=== PATIENT | female | born 1990 | race Caucasian/White ===

== ENCOUNTER 2020-01-15 15:17 | Outpatient (REF) | payer SELFPAY ==
[2020-01-20 00:48] LABS: SARS-CoV-2 RNA Undetected (Undetected); SARS-CoV-2 Specimen Source Nasal
== END 2020-01-15 15:37 ==
LOC: NCHCN 15:17
PROVIDERS: Visit Provider Family Medicine
DX: J34.89 Other specified disorders of nose and nasal sinuses (principal); Z11.59 Encounter for screening for other viral diseases
CPT/HCPCS: U0003

== ENCOUNTER 2024-03-08 14:17 | Emergency (ER) | payer MEDICAID, SELFPAY ==
[2024-03-08 14:20] VITALS: BP 112/79; PULSE 102; RESP 14; TEMP 37
[2024-03-08 14:26] VITALS: BP 112/79; PULSE 102; RESP 14; TEMP 37
[2024-03-08] MEDS: Tetracaine 0.5% 4 ML BTL (14:48)
[2024-03-08] MEDS: Fluorescein STRIPS 100/BOX 1 MG (14:48)
[2024-03-08] MEDS: Erythromycin Ophth Oint 3.5 GM TUBE (14:48)
--- NOTE | 2024-03-08 14:48 | W.ED.GENAD ---
Discharge Plan Disposition Patient Disposition: Home Condition: Good Discharge Details Clinical Impression: Injury of conjunctiva and corneal abrasion of right eye w/o FB Primary Care Provider: Unknown,Unknown ED Provider: Aquilino Collins Home Meds and New Rx's Prescriptions: No Action No Known Home Meds Discharge Instructions Instructions: Corneal Abrasion ED Additional Instructions: At this time you have evidence of a notable corneal abrasion in the front of your eye. There was a very small foreign body that was removed. Please continue to apply the erythromycin ointment every 6 hours. Please follow-up closely with your regulatory compliance director Dr. Chua. Once you have completed the erythromycin ointment application over the next 2 days, please transition to a lubricating eyedrop and apply this nightly immediately before you go to bed. If you notice any worsening of your symptoms, or any new symptoms such as vomiting, diarrhea, fever, chills, shortness of breath, chest pain, numbness, weakness, or fainting , please return immediately to the emergency department for reevaluation. Please follow up with your primary care provider as soon as possible for reassessment and reevaluation. As always, it was a pleasure participating in your medical care today. Referrals: [facility] [place] [Outside] [facility] General Date/Time Provider Initiated Documentation: 03/08/24 14:26. HPI Narrative: 34-year-old female with no significant past medical history who does not wear contact lenses presents today for irritation in the right eye. Patient states that yesterday she was [place] in the forest when a pine tree branch struck her in the right eye. She immediately had pain. It continued throughout the night into today. When she woke up this morning she had discharge and crusting. And the pain seem to be worse. She denies any significant visual change otherwise. She feels like there is a foreign body stuck in her eye. She denies any other complaints at this time. No other modifying factors. Related Data Home Medications ?Medication ?Instructions ?Recorded ?Confirmed Unknown [No Known Home Meds] 03/08/24 03/08/24 Allergies Allergy/AdvReac Type Severity Reaction Status Date / Time soap Allergy Intermediate Other (See Verified 03/08/24 14:25 Comment) Sulfa (Sulfonamide Allergy Intermediate Other (See Verified 03/08/24 14:25 Antibiotics) Comment) General Stated Complaint: EyeProblem AYUSH: 4 Exam Narrative Exam Narrative: 1.Const: Well-nourished, Well-developed, appearing stated age 2.Eyes: PERRL, right eye demonstrates minimal conjunctival injection, right eye: EOMI, PERRL, Peripheral vision intact. No nystagmus. No clinical signs of septal/orbital cellulitis, no redness around the eye, no proptosis. No hyphema, no signs of trauma around the eye, no periorbital emphysema. No sluggishness of the pupil. No ophthalmoplegia. No afferent pupillary defect. Fluorescein exam is positive for corneal abrasion right over the pupil, negative Sukhdeep sign. Visual acuity as documented in chart. Eversion of the upper and lower lid demonstrates no large foreign body, however there is evidence of a very small speck of detritus or wood that was noted in the medial aspect by the medial canthus. This was removed without complication. 3.ENT: Atraumatic external nose and ears. Moist MM. Neck: Symmetric, trachea midline, No thyromegaly. 4.CVS: +S1/S2, Peripheral pulses 2+ and equal in all extremities. Brisk capillary refill in all extremities. 5.RESP: Unlabored respiratory effort. Clear to auscultation bilaterally. No wheezes rales or rhonchi 6.GI: Soft, Nontender/Nondistended, No hepatosplenomegaly. No guarding or rebound. 7.MSK: Normocephalic/Atraumatic, Extremities w/o deformity or ttp No cyanosis or clubbing, Normal movement of all extremities 8.Skin: Warm, Dry. No rashes or lesions. 9.Neuro: [employer] II-XII grossly intact. Sensation grossly intact, no focal neurologic deficits. 10.Psych: (AAO) x3. Appropriate mood and affect Course Vital Signs Vital signs: Vital Signs Temperature 37.0 C 03/08/24 14:20 Pulse 102 H 03/08/24 14:20 Respiratory Rate 14 03/08/24 14:20 Blood Pressure 112/79 03/08/24 14:20 Temperature 37.0 C 03/08/24 14:26 Temperature Source Skin 03/08/24 14:26 Pulse 102 H 03/08/24 14:26 Respiratory Rate 14 03/08/24 14: Blood Pressure 112/79 03/08/24 14:26 Blood Pressure Position Sitting 03/08/24 14:26 Oxygen Delivery Method Room Air 03/08/24 14:26 Oxygen Flow Rate 0 03/08/24 14:26 Pain Level 4 03/08/24 14:26 Comment Pain = 10 with eye movement/palpation. 03/08/24 14:26 Procedures FB Removal Eye Time Out performed: Yes Location: eye (R) Topical anesthetic used: tetracaine Foreign body: wood Evidence of corneal penetration: No Technique: cotton tip swab Procedure performed under: direct visualization with magnification Post-procedure medication: ophthalmic antibiotic and topical anesthetic Patient tolerated procedure: well and no complications Medical Decision Making 34-year-old female with no significant past medical history who does not wear contact lenses presents today for irritation in the right eye. Patient states that yesterday she was outside in the forest when a pine tree branch struck her in the right eye. She immediately had pain. It continued throughout the night into today. When she woke up this morning she had discharge and crusting. And the pain seem to be worse. She denies any significant visual change otherwise. She feels like there is a foreign body stuck in her eye. She denies any other complaints at this time. No other modifying factors. Physical exam demonstrates evidence of dye uptake over the pupil with a notable linear corneal abrasion, no foreign body or rust ring. Eversion of the lower lid shows no foreign body, eversion of the upper lid demonstrates. Very small speck of foreign body in the medial aspect. This was easily removed with Q-tip. No other evidence of trauma or abnormalities otherwise. The patient is not a contact lens wear. Erythromycin ointment was applied. Patient stable for discharge. Room will recommend continued erythromycin application for the next 48 hours, and then transition to application of lubricating eyedrops nightly before bed. Will recommend follow-up with [facility]. I have extensively reviewed the treatment plan and discharge instructions with the patient and their family. I have addressed all patient concerns at this time. The patient and family was made aware of what symptoms to monitor for that would warrant a return to the emergency department. Discussed the plan with the patient and family, they demonstrate verbal understanding and agreement with our assessment and plan at this time. The documentation in this chart was dictated using [employer] dictation software. Please excuse any dictation errors. Quality:SDOH Health Related Social Needs: No Data to Display PFSH All Active Problems (Updated 03/08/24 @ 14:50 by Aquilino Collins DO) Injury of conjunctiva and corneal abrasion of right eye w/o FB (Acute) Social History Smoking/Tobacco Use Status: Current every day Tobacco Type: e-cigarettes Smoking risk assessment performed?: Yes Alcohol Intake: current Alcohol Intake frequency: a few times a month Alcohol type: hard liquor Drug use: Daily Substance use type: marijuana Details: Pt states she vapes daily - is trying to wean herself off of cigarettes 03/08/24 Do you feel safe at home: Yes Do you feel safe in your relationship?: Yes
--- OUTSIDE RECORDS SUMMARY | 2024-03-08 15:04 | XMS_ITS | Continuity of Care Document ---
Author Organization [facility] Address [address] [place] [address] Encounter [facility] Date(s): 03/29/23 - 03/29/23 [facility] [address] [place] [address] Encounter Diagnosis Knee sprain(Discharge Diagnosis) - 03/29/23 Knee effusion(Discharge Diagnosis) - 03/29/23 Discharge Disposition: Home or Self Care Attending Physician: Bri Toure MD Admitting Physician: Bri Toure MD Referring Physician: Bri Toure MD Allergies, Adverse Reactions, Alerts Substance Reaction Severity Status sulfa drugs Unknown Active Ivory Body Wash Unknown Active Assessment and Plan Extracted from: Title:ED Provider Note Author:Rubén Toure MD Date:03/29/23 Assessment/Plan 1.??Knee sprain??S83.90XA xray of right knee reassuring pt does have mild effusion.?? phone number for orthopedics given to pt to follow up with if continued pain or swelling.?? rice d/w pt.?? Ordered: Discharge Patient, 03/29/23 18:32:00 EST, Home Independently, Constant Indicator ?? 2.??Knee effusion??M25.469 See above Ordered: Discharge Patient, 03/29/23 18:32:00 EST, Home Independently, Constant Indicator ?? Patient Education Knee Effusion Knee Sprain, Adult Follow Up With When Contact Information Follow up with Orthopedic Within 1 to 2 weeks Additional Instructions: Vital Signs Most recent to oldest [Reference Range]: 1 Temperature Temporal Artery [36-38 Deg C ] 36.4 Deg C (03/29/23 5:53 PM) Peripheral Pulse Rate [60-100 bpm] 99 bp m (03/29/23 5:53 PM) Respiratory Rate [12-24 br/min] 18 br/mi n (03/29/23 5:53 PM) Blood Pressure [90-140/60-90 mmHg] 115/6 9mmHg (03/29/23 5:53 PM) Mean Arterial Pressure, Cuff [70-110 mmH g] 84 mmHg (03/29/23 5:53 PM) Weight Estimated 55.79 kg (03/29/23 5:53 PM) Body Mass Index Estimated 20.49 kg/m2 (03/29/23 5:53 PM) Height/Length Estimated 165 cm (03/29/23 5:53 PM) Social History Social History Type Response Tobacco Never tobacco user T obacco Use:. Sex Hospital Discharge Instructions Patient Education 03/29/2023 17:33:02 Knee Effusion Knee Effusion Knee effusion refers to excess fluid in the knee joint. This can cause pain and swelling in your knee. Knee effusion creates more pressure than usual in your knee joint. This makes it more difficult for you to bend and move your knee. If there is fluid in your knee, it often means that something iswrong inside your knee. This can be a result of: ??? Severe arthritis. ??? Injury to the knee muscles or to tissues in the knee (ligaments or cartilage). ??? Infection. ??? Autoimmune disease. This means that your body's defense system (immune system) mistakenly attacks healthy body tissues. Follow these instructions at home: If you have a brace or an immobilizer: ??? Wear it as told by your health care provider. Remove it only as told by your health care provider. ??? Check the skin around it every day. Tell your health care provider about any concerns. ??? Loosen it if your toes tingle, become numb, or turn cold and blue. ??? Keep it clean. ??? If the brace or immobilizer is not waterproof: ??? Do not let it get wet. ??? Cover it with a watertight covering when you take a bath or shower. Managing pain, stiffness, and swelling ??? If directed, put ice on the affected area. To do this: ??? If you have a removable brace or immobilizer, remove it as told by your health care provider. ??? Put ice in a plastic bag. ??? Place a towel between your skin and the bag. ??? Leave the ice on for 20 minutes, 2???3 times a day. ??? Remove the ice if your skin turns bright red. This is very important. If you cannot feel pain, heat, or cold, you have a greater risk of damage to the area. ??? Move your toes often to reduce stiffness and swelling. ??? Raise (elevate) your knee above the level of your heart while you are sitting or lying down. Activity ??? Rest as told by your health care provider. ??? Do not use the injured limb to support your body weight until your health care provider says that you can. Use crutches as told by your health care provider. ??? Do exercises as told by your health care provider. General instructions ??? Take nvws-yxl-ijhykjj and prescription medicines only as told by your health care provider. ??? Do not use any products that contain nicotine or tobacco. These products include cigarettes, chewing tobacco, and vaping devices, such as e-cigarettes. If you need help quitting, ask your health care provider. ??? Wear an elastic bandage or a wrap that puts pressure on your knee (compression wrap) as told byyour health care provider. ??? Keep all follow-up visits. This is important. Contact a health care provider if: ??? You continue to have pain in your knee. ??? You have a fever or chills. Get help right away if: ??? You have swelling or redness in your knee that gets worse or does not get better. ??? You have severe pain in your knee. Summary ??? Knee effusion refers to excess fluid in the knee joint. This causes pain and swelling and makesit difficult to bend and move your knee. ??? Effusion may be caused by severe arthritis, autoimmune disease, infection, or injury to the knee muscles or to tissues in the knee (ligaments or cartilage). ??? Take clbz-ofv-qavhxio and prescription medicines only as told by your health care provider. ??? If you have a brace or an immobilizer, wear it as told by your health care provider. This information is not intended to replace advice given to you by your health care provider. Make sure you discuss any questions you have with your health care provider. Document Revised: 10/23/2020 Document Reviewed: 10/23/2020 [employer] Patient Education ?? 2022 [employer]. 03/29/2023 17:33:02 Knee Sprain, Adult Knee Sprain, Adult A knee sprain is a stretch or tear in a knee ligament. Knee ligaments are tissues that connect bones in the knee to each other. What are the causes? This condition often results from: ??? A fall. ??? An injury to the knee. What are the signs or symptoms? Symptoms of this condition include: ??? Trouble straightening or bending the leg. ??? Swelling in the knee. ??? Bruising around the knee. ??? Tenderness or pain in the knee. ??? Muscle spasms around the knee. How is this diagnosed? This condition may be diagnosed based on: ??? A physical exam. ??? A history of what happened just before you started to have symptoms. ??? Tests, including: ??? An X-ray. This may be done to make sure no bones are broken. ??? An MRI. This may be done to check if the ligament is torn. ??? Stress testing of the knee. This may be done to check ligament damage. How is this treated? Treatment for this condition may involve: ??? Keeping the knee still (immobilized) with a cast, brace, or splint. ??? Applying ice to the knee. This helps with pain and swelling. ??? Raising (elevating) the knee above the level of your heart when you are resting. This helps with pain and swelling. ??? Taking medicine for pain. ??? Doing exercises to prevent or limit permanent weakness or stiffness in your knee. ??? Having surgery to reconnect the ligament to the bone or to reconstruct it. This may be needed if the ligament is completely torn. Follow these instructions at home: If you have a splint or brace: ??? Wear it as told by your health care provider. Remove it only as told by your health care provider. ??? Check the skin around it every day. Tell your health care provider about any concerns. ??? Loosen it if your toes tingle, become numb, or turn cold and blue. ??? Keep it clean and dry. If you have a cast: ??? Do not stick anything inside it to scratch your skin. Doing that increases your risk of infection. ??? Check the skin around it every day. Tell your health care provider about any concerns. ??? You may put lotion on dry skin around the edges of the cast. Do not put lotion on the skin underneath the cast. ??? Keep it clean and dry. Bathing If you have a splint, brace, or cast that is not waterproof: ??? Do not let it get wet. ??? Cover it with a watertight covering when you take a bath or a shower. Managing pain, stiffness, and swelling ??? If directed, put ice on the injured area. To do this: ??? If you have a removable splint or brace, remove it as told by your health care provider. ??? Put ice in a plastic bag. ??? Place a towel between your skin and the bag or between your cast and the bag. ??? Leave the ice on for 20 minutes, 2???3 times a day. ??? Move your toes often to reduce stiffness and swelling. ??? Elevate the injured area above the level of your heart while you are sitting or lying down. General instructions ??? Take jplx-wkc-kzknxnx and prescription medicines only as told by your health care provider. ??? Do not use any products that contain nicotine or tobacco, such as cigarettes, e-cigarettes, andchewing tobacco. These can delay healing. If you need help quitting, ask your health care provider. ??? Do exercises as told by your health care provider. ??? Keep all follow-up visits as told by your health care provider. This is important. Contact a health care provider if: ??? You have pain that gets worse. ??? The cast, brace, or splint does not fit right. ??? The cast, brace, or splint gets damaged. Get help right away if: ??? You cannot use your injured knee to support any of your body weight (cannot bear weight). ??? You cannot move the injured joint. ??? You cannot walk more than a few steps without pain or without your knee buckling. ??? You have significant pain, swelling, or numbness in the leg below the cast, brace, or splint. ??? Your foot or toes are numb, cold, or blue after loosening your splint or brace. Summary ??? A knee sprain is a stretch or tear in a knee ligament that usually occurs as the result of a fall or injury. ??? Treatment may involve immobilizing the knee with a cast, splint, or brace and then doing exercises. ??? If the ligament is completely torn, it may require surgery to repair or replace the injured ligament. This information is not intended to replace advice given to you by your health care provider. Make sure you discuss any questions you have with your health care provider. Document Revised: 01/12/2020 Document Reviewed: 01/12/2020 [employer] Patient Education ?? 2022 [employer]. Follow Up Care 03/29/2023 17:53:52 With:Follow up with Orthopedic Address: When:1 to 2 weeks Physician Emergency department Note * Bri Toure MD: PERFORM Event Display: ED Note Physician Authored Date: [id number] NEAL CALLAWAY :1990 Age:33 years Sex:Female Visit Date:03/29/2023 Basic Information Time Seen: Bri Toure MD / 03/29/2023 17:54 Chief Complaint Pt states my knee is very visably out of place, reports feeling a slight tingle, after bendingdown 2 days ago in R knee, and now it's out of place. Pt walked into triage with steady gait. History Of Present Illness: Reports??she has had 2 to 3 days of the??swelling discomfort??she has had to back down??and felt like something is slightly out of place??and has had slight discomfort in it since.?? No trauma no injury??no trip no fall no left??knee issue.?? Patient has to be on her feet at work.?? No ecchymosis no abrasion.?? No other joint issue. Review of Systems: see hpi for ros Physical Exam Vitals & Measurements T:??36.4?C ??(Temporal Artery)?? HR:??99??(Peripheral)?? RR:??18?? BP:??115/69?? SpO2:??99%?? HT:??165??cm?? WT:??55.79??kg??(Estimated)?? BMI:??20.49?? O2 Therapy:??Room air?? General: Alert and oriented, well nourished,?No??acute distress Eye: PER,?Normal??conjunctiva, No scleral icterus HENT: Normocephalic?Normal?? hearing?? Respiratory:??Respiration??no distress??no increased work of breathing Heart:??Capillary refill less than 2 seconds??no??edema Chest: wall excursion wnl no abnormal movements no obvious deformities Musculoskeletal:??Slight decreased range of motion of right??knee for flexion??otherwise appears jeni within normal limits??mild effusion present right knee??no ligament laxity??no significant tenderness with ligament testing, dorsalis pedis posterior tibialis of the right ankle is a 2 sensation light touch is intact Skin: Skin is warm, dry and pink,?No??rashes,?No??lesions Neurologic: Awake, alert and oriented X4 Psychiatric: Cooperative, appropriate mood and affect Medical Decision Making: For MDM please see under assessment and plan Procedure No Qualifying Data Assessment/Plan 1.??Knee sprain??S83.90XA xray of right knee reassuring pt does have mild effusion.?? phone number for orthopedics given to pt to follow up with if continued pain or swelling.?? rice d/w pt.?? Ordered: Discharge Patient, 03/29/23 18:32:00 EST, Home Independently, Constant Indicator ?? 2.??Knee effusion??M25.469 See above Ordered: Discharge Patient, 03/29/23 18:32:00 EST, Home Independently, Constant Indicator ?? Patient Education Knee Effusion Knee Sprain, Adult Follow Up With When Contact Information Follow up with Orthopedic Within 1 to 2 weeks Additional Instructions: Problem List/Past Medical History Ongoing No qualifying data Historical No qualifying data Allergies Ivory Body Wash sulfa drugs Social History Electronic Cigarette/Vaping Electronic Cigarette Use: Use, within last 90 days. Tobacco Never tobacco user Tobacco Use:. Electronically Signed on 03/29/23 06:36 PM Bri Toure MD Emergency department Discharge instructions * Bri Toure MD: PERFORM Event Display: ED Discharge Information Authored Date: [id number] NEAL CALLAWAY :1990 Age:33 years Sex:Female Visit Date:03/29/2023 Discharge Instructions We would like to thank you for allowing us to assist you with your healthcare needs. The following includes patient education materials and information regarding your injury/illness. Diagnosis from Today's Visit Knee sprain Knee effusion Discharge Vitals Temperature??(Temporal Artery) 97.5 ??F (36.4 ??C) Heart Rate??(Peripheral) 99 Respiratory Rate?? 18 Blood Pressure?? 115/69?? Height?? 64.96 in (165 cm) Weight??(Estimated) 123.02 lb (55.79 kg) BMI?? 20.49 Allergies Ivory Body Wash sulfa drugs What to Do Next Instructions from Your Care Team If continued swelling and discomfort with your knee please call Orthopedics [phone] to schedule follow up.?? RICE Rest, ice, elevate.?? You Need to Schedule the Following Appointments Follow Up with??Follow up with Orthopedic When:??Within 1 to 2 weeks You were treated today on an emergency basis; it may be rojas to contact your primary care provider to notify them of your visit today. You may have been referred to your regular doctor or a specialist, please follow up as instructed. If your condition worsens or you can't get in to see the doctor, contact the Emergency Department. Education Materials Knee Effusion Knee effusion refers to excess fluid in the knee joint. This can cause pain and swelling in your knee. Knee effusion creates more pressure than usual in your knee joint. This makes it more difficult for you to bend and move your knee. If there is fluid in your knee, it often means that something iswrong inside your knee. This can be a result of: ? Severe arthritis. ? Injury to the knee muscles or to tissues in the knee (ligaments or cartilage). ? Infection. ? Autoimmune disease. This means that your body's defense system (immune system) mistakenly attacks healthy body tissues. Follow these instructions at home: If you have a brace or an immobilizer: ? Wear it as told by your health care provider. Remove it only as told by your health care provider. ? Check the skin around it every day. Tell your health care provider about any concerns. ? Loosen it if your toes tingle, become numb, or turn cold and blue. ? Keep it clean. ? If the brace or immobilizer is not waterproof: ? Do not let it get wet. ? Cover it with a watertight covering when you take a bath or shower. Managing pain, stiffness, and swelling ? If directed, put ice on the affected area. To do this: ? If you have a removable brace or immobilizer, remove it as told by your health care provider. ? Put ice in a plastic bag. ? Place a towel between your skin and the bag. ? Leave the ice on for 20 minutes, 2???3 times a day. ? Remove the ice if your skin turns bright red. This is very important. If you cannot feel pain, heat, or cold, you have a greater risk of damage to the area. ? Move your toes often to reduce stiffness and swelling. ? Raise (elevate) your knee above the level of your heart while you are sitting or lying down. Activity ? Rest as told by your health care provider. ? Do not use the injured limb to support your body weight until your health care provider says that you can. Use crutches as told by your health care provider. ? Do exercises as told by your health care provider. General instructions ? Take fgga-nls-mmtzwck and prescription medicines only as told by your health care provider. ? Do not use any products that contain nicotine or tobacco. These products include cigarettes, chewing tobacco, and vaping devices, such as e-cigarettes. If you need help quitting, ask your health careprovider. ? Wear an elastic bandage or a wrap that puts pressure on your knee (compression wrap) as told by your health care provider. ? Keep all follow-up visits. This is important. Contact a health care provider if: ? You continue to have pain in your knee. ? You have a fever or chills. Get help right away if: ? You have swelling or redness in your knee that gets worse or does not get better. ? You have severe pain in your knee. Summary ? Knee effusion refers to excess fluid in the knee joint. This causes pain and swelling and makes it difficult to bend and move your knee. ? Effusion may be caused by severe arthritis, autoimmune disease, infection, or injury to the knee muscles or to tissues in the knee (ligaments or cartilage). ? Take atpx-utv-utqyafu and prescription medicines only as told by your health care provider. ? If you have a brace or an immobilizer, wear it as told by your health care provider. This information is not intended to replace advice given to you by your health care provider. Make sure you discuss any questions you have with your health care provider. Document Revised: 10/23/2020 Document Reviewed: 10/23/2020 [employer] Patient Education ?? 2022 [employer] Knee Sprain, Adult A knee sprain is a stretch or tear in a knee ligament. Knee ligaments are tissues that connect bones in the knee to each other. What are the causes? This condition often results from: ? A fall. ? An injury to the knee. What are the signs or symptoms? Symptoms of this condition include: ? Trouble straightening or bending the leg. ? Swelling in the knee. ? Bruising around the knee. ? Tenderness or pain in the knee. ? Muscle spasms around the knee. How is this diagnosed? This condition may be diagnosed based on: ? A physical exam. ? A history of what happened just before you started to have symptoms. ? Tests, including: ? An X-ray. This may be done to make sure no bones are broken. ? An MRI. This may be done to check if the ligament is torn. ? Stress testing of the knee. This may be done to check ligament damage. How is this treated? Treatment for this condition may involve: ? Keeping the knee still (immobilized) with a cast, brace, or splint. ? Applying ice to the knee. This helps with pain and swelling. ? Raising (elevating) the knee above the level of your heart when you are resting. This helps with pain and swelling. ? Taking medicine for pain. ? Doing exercises to prevent or limit permanent weakness or stiffness in your knee. ? Having surgery to reconnect the ligament to the bone or to reconstruct it. This may be needed if the ligament is completely torn. Follow these instructions at home: If you have a splint or brace: ? Wear it as told by your health care provider. Remove it only as told by your health care provider. ? Check the skin around it every day. Tell your health care provider about any concerns. ? Loosen it if your toes tingle, become numb, or turn cold and blue. ? Keep it clean and dry. If you have a cast: ? Do not stick anything inside it to scratch your skin. Doing that increases your risk of infection. ? Check the skin around it every day. Tell your health care provider about any concerns. ? You may put lotion on dry skin around the edges of the cast. Do not put lotion on the skin underneath the cast. ? Keep it clean and dry. Bathing If you have a splint, brace, or cast that is not waterproof: ? Do not let it get wet. ? Cover it with a watertight covering when you take a bath or a shower. Managing pain, stiffness, and swelling ? If directed, put ice on the injured area. To do this: ? If you have a removable splint or brace, remove it as told by your health care provider. ? Put ice in a plastic bag. ? Place a towel between your skin and the bag or between your cast and the bag. ? Leave the ice on for 20 minutes, 2???3 times a day. ? Move your toes often to reduce stiffness and swelling. ? Elevate the injured area above the level of your heart while you are sitting or lying down. General instructions ? Take tecq-fpd-aaoasya and prescription medicines only as told by your health care provider. ? Do not use any products that contain nicotine or tobacco, such as cigarettes, e- cigarettes, and chewing tobacco. These can delay healing. If you need help quitting, ask your health care provider. ? Do exercises as told by your health care provider. ? Keep all follow-up visits as told by your health care provider. This is important. Contact a health care provider if: ? You have pain that gets worse. ? The cast, brace, or splint does not fit right. ? The cast, brace, or splint gets damaged. Get help right away if: ? You cannot use your injured knee to support any of your body weight (cannot bear weight). ? You cannot move the injured joint. ? You cannot walk more than a few steps without pain or without your knee buckling. ? You have significant pain, swelling, or numbness in the leg below the cast, brace, or splint. ? Your foot or toes are numb, cold, or blue after loosening your splint or brace. Summary ? A knee sprain is a stretch or tear in a knee ligament that usually occurs as the result of a fall or injury. ? Treatment may involve immobilizing the knee with a cast, splint, or brace and then doing exercises. ? If the ligament is completely torn, it may require surgery to repair or replace the injured ligament. This information is not intended to replace advice given to you by your health care provider. Make sure you discuss any questions you have with your health care provider. Document Revised: 01/12/2020 Document Reviewed: 01/12/2020 [employer] Patient Education ?? 2022 [employer] Patient/Rehabilitation Services Manager Signature Patient Name:NEAL CALLAWAY I have received this information and my questions have been answered. Patient/Rehabilitation Services Manager Name: Patient/Rehabilitation Services Manager Signature: Relationship to Patient: Witness Name/Signature: Date: Electronically Signed on: 03/29/2023 18:33 ESTSigned by:[facility] Emergency department Note * Latrice Case H: PERFORM Event Display: ED Notes Authored Date: [id number] Patient Care team information Care Team Related Persons Name: DANIELA CALLAWAY
== END 2024-03-08 14:55 | disposition home or self-care (01) ==
LOC: ER 15:02
PROVIDERS: Emergency Provider Student in an Organized Health Care Education/Training Program
DX: T15.01XA Foreign body in cornea, right eye, initial encounter (principal); X58.XXXA Exposure to other specified factors, initial encounter
CPT/HCPCS: 99283